=== PATIENT | male | born 1960 | race Caucasian/White ===

== ENCOUNTER → 2025-06-06 13:28 | Outpatient (REF) | payer MEDICARE, BC, SELFPAY | LOC: HWRAD 13:28 | PROVIDERS: ATTENDING PHYSICIAN Student in an Organized Health Care Education/Training Program | DX: R05.3 Chronic cough (principal) | CPT/HCPCS: 71046 ==

== ENCOUNTER → 2025-08-26 13:22 | Outpatient (REF) | payer MEDICARE, OTHER, SELFPAY | LOC: RAD 13:22 | PROVIDERS: ATTENDING PHYSICIAN Internal Medicine Critical Care Medicine; FAMILY PHYSICIAN Student in an Organized Health Care Education/Training Program | DX: J98.6 Disorders of diaphragm (principal); R05.3 Chronic cough | CPT/HCPCS: 71046; 71250; 76000 ==

== ENCOUNTER 2025-09-06 20:11 | Emergency (ER) | payer MEDICARE, OTHER, SELFPAY ==
[2025-09-06 20:18] VITALS: BP 165/107
[2025-09-06 20:33] VITALS: BP 149/87
[2025-09-06 20:51] VITALS: BMI 42.9
--- NOTE | 2025-09-06 20:51 | ED.GENMED ---
History of Present Illness
<Adrien Lockwood, DO - Last Filed: 09/07/25 23:42>
General
Chief Complaint: Chest Pain
Source: patient and spouse
Exam Limitations: none
Time Seen by Provider: 09/06/25 20:42
Nursing documentation reviewed up to this point in time: agreed with
History of Present Illness
History of Present Illness:
Note:
CHIEF COMPLAINT(S)
Chest pain with burning sensation upon deep inspiration.
HISTORY OF PRESENT ILLNESS
The patient is a 65-year-old male who presented with chest pain described as burning, particularly when taking a deep breath. The pain is localized to the lower chest and began after exercising on the treadmill earlier today at around 12:30 PM. The
patient did not experience chest pain during the treadmill exercise, but it appeared subsequently and has persisted. He denies any dyspnea but reports discomfort in the center of the chest, which extends to the neck with no prior similar episodes.
The patient has a history of skin cancer but denies any history of colon cancer.
PAST MEDICAL AND SURGICAL HISTORY
History of skin cancer, likely squamous cell carcinoma, treated periodically.
PHYSICAL EXAM
General: Alert, no acute distress.
Skin: Warm, dry.
Head: Normocephalic, atraumatic.
Neck: Supple, trachea midline.
Eye Ears, nose, mouth and throat: Oral mucosa moist.
Cardiovascular: Normal peripheral perfusion, No edema. chest wall tender to palpation
Respiratory: Respirations are non-labored.
Gastrointestinal: Abdomen nondistended.
Back: Normal range of motion, Normal alignment.
Musculoskeletal: Normal ROM, normal strength.
Neurological: Alert and oriented to person, place, time, and situation, No focal neurological deficit observed.
Psychiatric: Cooperative, appropriate mood & affect.
PLAN
The patient will undergo an electrocardiogram (EKG), chest x-ray, and blood work to evaluate for potential causes of chest pain. Further dermatological follow-up for skin cancer management as needed.
DIFFERENTIAL DIAGNOSIS
The Differential Diagnosis includes, in no particular order and is not limited to:
1. Gastroesophageal reflux disease (GERD)
2. Costochondritis
3. Musculoskeletal pain
4. Angina pectoris
5. Pulmonary embolism
6. Myocardial infarction
7. Pericarditis
8. Anxiety disorder
9. Pleuritis
10. Esophageal spasm
CARE-UPDATE
09/06/25 - 22:27
Troponin scheduled for repeat three-hour test. If this repeat is negative, patient will be discharged with instructions to follow up with Dr. Chinchilla in cardiology. Current workup does not indicate ACS or PE.
SUMMARY OF ENCOUNTER
The patient, a 65-year-old male, presented to the emergency department with complaints of chest pain described as a burning sensation upon deep inspiration. The pain began after exertion on the treadmill. Initial evaluation included an
electrocardiogram (EKG), chest x-ray, and laboratory tests to assess for serious cardiac events such as acute coronary syndrome (ACS) or pulmonary embolism (PE). The results were negative for these serious conditions.
DISPOSITION
The patient is considered stable for discharge.
ASSESSMENT
Given the negative results for ACS and PE, the chest pain is assessed to be non-cardiac in origin, possibly musculoskeletal or related to gastroesophageal reflux disease (GERD).
PLAN
The patient will be discharged with instructions to follow up with Dr. Chinchilla in cardiology for further evaluation.
INDEPENDENT REVIEW OF LABS AND INTERPRETATION OF TESTS
My independent interpretation of the performed tests does not indicate ACS or PE.
PATIENT EDUCATION AND COUNSELING
The patient was informed about the findings and reassured that the concerning causes of chest pain were not present. Education about recognizing potential warning signs and the importance of follow-up care was provided.
FOLLOW-UP INSTRUCTIONS
The patient is advised to follow up with Dr. Chinchilla in cardiology as part of ongoing cardiac evaluation.
MEDICAL DECISION MAKING
-Complexity of Data Reviewed: Chronic conditions affecting care [history of skin cancer]. Differential Diagnosis includes GERD, costochondritis, musculoskeletal pain, angina pectoris, pulmonary embolism, myocardial infarction, pericarditis, anxiety
disorder, pleuritis, esophageal spasm.
-Data:
Category 1
The patients lab results and imaging studies, including EKG and chest x-ray, were independently reviewed and interpreted.
Category 2
Not applicable.
Category 3
Consultation with cardiology planned via follow-up.
-Risk:
Consideration of Admission/Observation: Escalation of care including admission/observation was considered given the complexity and risk of the patients presenting complaint, exam findings, and/or their underlying comorbidities. However, ultimately I
feel the patient is safe for outpatient management with close follow-up. Reasoning: Work-up reassuring, does not reveal any acute life/organ-threatening processes, patients symptoms well controlled upon reevaluation, reexamination is reassuring,
vitals are stable, patient agreeable with discharge, reliable for follow-up.
DIAGNOSIS
Chest pain, unspecified (ICD-10: R07.9)
Past History
<Adrien Lockwood, DO - Last Filed: 09/07/25 23:42>
Past History
ED Past Medical History: CVA, HTN and Hypercholesterolemia
ED Past Surgical History: Other
Social History
Tobacco: Non-smoker
Alcohol: Other
Drug: None
Personal:
Living: with family
Employment: Other
Family History
Family History: Other
Phy Exam
<Adrien Lockwood, DO - Last Filed: 09/07/25 23:42>
Physical Exam
Physical Exam:
.
Scores
<Adrien Lockwood, DO - Last Filed: 09/07/25 23:42>
Heart Score for Chest Pain Patients
STEMI patient?: No
History: Slightly or Non-Suspicious
ECG: Normal
Age: >/= 65 years
Risk Factors: 1 or 2 Risk Factors
Troponin: </= Normal Limit
Heart Score for Chest Pain Patients: 3
Heart Score Risk: 2.5% MACE over next 6 weeks
Course
<Adrien Lockwood, DO - Last Filed: 09/07/25 23:42>
Orders/Labs/Results
Orders:
Orders
09/06/25 20:12
EKG [Electrocardiogram (*1)] Urgent
Reason for Study: Chest Pain
EKG- Treatment ONCE
09/06/25 20:50
IV Insert/Care/Rem.- Treatment PRN
Pulse Ox/cont/shift [RESP] Stat
Quantity: 1
09/06/25 20:51
Cardiac Monitoring- Treatment ONCE
CR Chest - 2 Views Urgent
Comment:
Reason For Exam: chest pain
09/06/25 20:56
Complete Blood Count/With Diff Urgent
Comprehensive Metabolic Panel Urgent
D-Dimer Urgent
NT-proBNP Urgent
Troponin I Urgent
09/06/25 22:23
Aspirin Chewable [Low Strength Aspirin] 324 mg PO NOW STA
Pantoprazole [Protonix IV] 40 mg IV NOW STA
09/06/25 23:37
Electrocardiogram (*1) Urgent
Reason for Study: Hypertension, Benign
EKG- Treatment ONCE
09/06/25 23:38
Troponin I Urgent
Abnormal Lab Results
09/06/25
20:56
MCHC 32.9 L g/dL
(33.0-37.0)
MPV 11.6 H fL
(7.4-10.4)
Absolute Neuts (auto) 6.8 H 10^3/uL
(1.4-6.5)
Absolute Monos (auto) 0.8 H 10^3/uL
(0.1-0.6)
Lymphocytes % 14.1 L %
(20.5-51.1)
09/06/25 20:56
09/06/25 20:56
Vital Signs
Initial and Last Documented VS:
Initial Vital Signs
Temp Pulse Resp BP Pulse Ox
98 F 77 16 165/107 98
09/06/25 20:18 09/06/25 20:18 09/06/25 20:18 09/06/25 20:18 09/06/25 20:18
Last Documented Vital Signs
Temp Pulse Resp BP Pulse Ox
98 F 65 20 126/77 92
09/06/25 20:18 09/07/25 00:45 09/07/25 00:45 09/07/25 01:00 09/07/25 00:45
<Daquan Graham, DO - Last Filed: 09/07/25 01:17>
Orders/Labs/Results
Orders:
Orders
09/06/25 20:12
EKG [Electrocardiogram (*1)] Urgent
Reason for Study: Chest Pain
EKG- Treatment ONCE
09/06/25 20:50
IV Insert/Care/Rem.- Treatment PRN
Pulse Ox/cont/shift [RESP] Stat
Quantity: 1
09/06/25 20:51
Cardiac Monitoring- Treatment ONCE
CR Chest - 2 Views Urgent
Comment:
Reason For Exam: chest pain
09/06/25 20:56
Complete Blood Count/With Diff Urgent
Comprehensive Metabolic Panel Urgent
D-Dimer Urgent
NT-proBNP Urgent
Troponin I Urgent
09/06/25 22:23
Aspirin Chewable [Low Strength Aspirin] 324 mg PO NOW STA
Pantoprazole [Protonix IV] 40 mg IV NOW STA
09/06/25 23:37
Electrocardiogram (*1) Urgent
Reason for Study: Hypertension, Benign
EKG- Treatment ONCE
09/06/25 23:38
Troponin I Urgent
Abnormal Lab Results
09/06/25
20:56
MCHC 32.9 L g/dL
(33.0-37.0)
MPV 11.6 H fL
(7.4-10.4)
Absolute Neuts (auto) 6.8 H 10^3/uL
(1.4-6.5)
Absolute Monos (auto) 0.8 H 10^3/uL
(0.1-0.6)
Lymphocytes % 14.1 L %
(20.5-51.1)
09/06/25 20:56
09/06/25 20:56
Vital Signs
Initial and Last Documented VS:
Initial Vital Signs
Temp Pulse Resp BP Pulse Ox
98 F 77 16 165/107 98
09/06/25 20:18 09/06/25 20:18 09/06/25 20:18 09/06/25 20:18 09/06/25 20:18
Last Documented Vital Signs
Temp Pulse Resp BP Pulse Ox
98 F 65 20 126/77 92
09/06/25 20:18 09/07/25 00:45 09/07/25 00:45 09/07/25 01:00 09/07/25 00:45
<Adrien Lockwood, - Last Filed: 09/07/25 23:42>
*Pulse Oximetry
SaO2: 93
Oxygen Mode of Delivery: Room air
Patient hypoxic: no
*Critical Care Note
Total Time (30-74mins, 75-104mins- exclusive of procedures): Not Applicable
<Daquan Graham DO - Last Filed: 09/07/25 01:17>
Update Note
Update Note:
1 AM care of patient was transitioned pending second troponin. Second troponin remains negative. Patient is well-appearing on my exam. Patient placed on cardiac callback tracker and feels comfortable going home
ED Attending Note
<Adrien Lockwood DO - Last Filed: 09/07/25 23:42>
-
Portions of this chart may have been created with voice recognition software.� Occasional wrong word or��sound alike� substitutions may have occurred due to the inherent limitations of voice recognition software.
Discharge Plan
Departure
Patient Disposition: Home (Routine Discharge)
Date of Disposition: 09/07/25
Time of Disposition: 01:15
Patient with high blood pressure during this ER visit?: Yes
Discharge Problem:
Chest pain
Instructions: Chest Pain DCA Follow Up, BLOOD PRESSURE
Prescriptions:
No Action
Allergy Relief Medicine
10 mg PO DAILY
gabapentin 600 mg Tablet
600 mg PO TID
atorvastatin 20 mg Tablet
40 mg PO DAILY
valsartan-hydrochlorothiazide 160-25 mg Tablet
320 tab PO DAILY
Rx Instructions:
320 mg 1x daily
Fish Oil Capsule
1,000 mg PO DAILY
Centrum Men 8 mg iron- 200 mcg-600 mcg Tablet
1 tab PO DAILY
aspirin 81 mg Capsule
81 mg PO DAILY
sertraline 25 mg Tablet
25 mg PO DAILY
amlodipine 5 mg Tablet
5 mg PO DAILY
azelastine 137 mcg (0.1 %) [place],Non-Aerosol
1 spray INTRANASAL BID
valsartan 160 mg Tablet
160 mg PO DAILY
Zepbound 2.5 mg/0.5 mL Pen Injector
2.5 mg SC QWEEK
Rx Instructions:
for 4 weeks
Zepbound 2.5 mg/0.5 mL Solution
2.5 mg SC QWEEK
Referrals:
Low Hudson DO [Family Provider, Family Practice]
Brittany Murillo DO [Active, Cardiology]
Activity Restrictions/Additional Instructions:
Please return for any worsening symptoms.
You may return at any time if you have further concerns.
Please follow up with your doctor at the first available appointment, preferably this week.
You were placed on the cardiac callback tracker. Someone from their office should call you in the next few days. If you do not hear from them in the next few days, please give them a call.
Thank you for choosing [facility].
Interventions
Interventions:
*Risk Screen - Suicide Last Done: 09/06/25 20:18
*General Assessment Last Done: 09/06/25 20:49
*Neglect/Abuse Screening Last Done: 09/06/25 20:18
*ED- Fall Risk Assessment Last Done: 09/06/25 20:49
*ED COVID-19 Vaccine History Last Done: 09/06/25 20:49
*ED Influenza Vaccine History Last Done: 09/06/25 20:49
*Nursing Disposition Last Done: 09/07/25 01:24
ED- Cardiac Assessment Last Done: 09/06/25 20:47
Discharge Date and Time
Discharge Date/Time: 09/07/25 01:24
Print Language: TURKISH
[2025-09-06 21:00] VITALS: BP 143/71
[2025-09-06 21:04] LABS: Hematocrit 44.1 % (39.0-52.0); Hemoglobin 14.5 g/dL (13.0-18.0); Mean Corp Hgb Conc. 32.9 g/dL (33.0-37.0); Mean Corpuscular Volume 89.3 fL (80.0-94.0); Nucleated Red Blood Cells % 0 % (-); Platelet Count 152 10^3/uL (130-400); Red Cell Dist. Width 12.6 % (11.5-14.5)
[2025-09-06 21:16] LABS: D-Dimer 0.36 ug/mlFEU (0.00-0.50)
[2025-09-06 21:26] LABS: ALT (SGPT) 37 U/L (0-50); AST (SGOT) 32 U/L (17-59); Albumin 4.5 g/dl (3.5-5.0); Alkaline Phosphatase 93 U/L (38-126); Blood Urea Nitrogen 15 mg/dl (9-20); Calcium 9.8 mg/dl (8.4-10.2); Carbon Dioxide 30 mmol/L (22-30); Chloride 101 mmol/L (98-107); Estimated Creatinine Clearance 117 ml/min; Glucose 96 mg/dl (70-99); Potassium 4.0 mmol/L (3.5-5.1); Sodium 135 mmol/L (135-145); Total Protein 6.9 g/dl (6.3-8.2); eGFR > 60.00
[2025-09-06 21:31] LABS: Troponin I < 0.012 ng/ml
[2025-09-06] MEDS: LOW STRENGTH ASPIRIN 324 MG PO (22:43)
[2025-09-06 22:45] VITALS: BP 115/67
[2025-09-06] MEDS: PROTONIX IV 40 MG IV (22:45)
[2025-09-06 23:00] VITALS: BP 128/70
[2025-09-07] VITALS: BP 124/66
[2025-09-07 00:46] LABS: Troponin I 0.015 ng/ml
[2025-09-07 01:00] VITALS: BP 126/77
== END 2025-09-07 01:24 | disposition home or self-care (01) ==
LOC: EMR 20:11
PROVIDERS: EMERGENCY PHYSICIAN Emergency Medicine; FAMILY PHYSICIAN Student in an Organized Health Care Education/Training Program
DX: R07.1 Chest pain on breathing (principal); I10 Essential (primary) hypertension; E78.00 Pure hypercholesterolemia, unspecified; Z86.73 Personal history of transient ischemic attack (TIA), and cerebral infarction without residual deficits; Z85.828 Personal history of other malignant neoplasm of skin
CPT/HCPCS: 99285; 96374; 71046; 80053; 83880; 84484; 85025; 85379; 93005

== ENCOUNTER → 2025-10-13 15:02 | Outpatient (REF) | payer MEDICARE, OTHER, SELFPAY | LOC: DHSLP 15:02 | PROVIDERS: ATTENDING PHYSICIAN Internal Medicine Critical Care Medicine; FAMILY PHYSICIAN Otolaryngology | DX: G47.33 Obstructive sleep apnea (adult) (pediatric) (principal); R09.02 Hypoxemia | CPT/HCPCS: 95800 ==